=== PATIENT | female | born 1990 | race Caucasian/White ===

== ENCOUNTER 2022-12-30 06:24 | Day surgery (SDC) | payer BC ==
[~2022-12-30] VITALS: Ht 162.6 cm; Wt 83.9 kg
[~2022-12-30 06:24] MED LIST: ACET-907 PO; ALEV220T22 PO; ALTA1TAB3 PO; GABA-282 PO; GABA-283 PO; MONT-5 PO; SERT50TA29 PO; ZYRTTAB8 PO
[2022-12-30] MEDS ORDERED: CLINDAMYCIN 900 MG in IV 1 EA IV ONE (07:00)
[2022-12-30] MEDS ORDERED: LR 1,000 ML IV SCH (07:05)
[2022-12-30] MEDS ORDERED: LIDOCAINE 2% 100MG/5ML SDV (FOR ANES.) As Ordered ONE (07:05)
[2022-12-30] MEDS ORDERED: ACETAMINOPHEN 1000MG 100ML IV BAG As Ordered ONE (07:05)
[2022-12-30] MEDS ORDERED: propofoL 200 MG/20 ML VIAL As Ordered ONE (07:05)
[2022-12-30] MEDS ORDERED: MIDAZOLAM INJ 2MG/2ML VIAL As Ordered ONE (07:06)
[2022-12-30] MEDS ORDERED: fentaNYL 100 MCG/2 ML INJECTION As Ordered ONE (07:06)
[2022-12-30] MEDS ORDERED: BUPIVACAINE HCL 0.5% 30ML VIAL As Ordered ONE (07:11)
[2022-12-30] MEDS ORDERED: LIDOCAINE 1% SDV 30ML VIAL As Ordered ONE (07:11)
[2022-12-30] MEDS ORDERED: ONDANSETRON 4MG 2ML VIAL As Ordered ONE (07:48)
[2022-12-30 08:25] VITALS: BP 110/65; TEMP 98.7; O2SAT 100
== END 2022-12-30 08:51 | disposition home or self-care (01) ==
LOC: M SDC 06:24
PROVIDERS: ATTEND Podiatrist Foot & Ankle Surgery
DX: G57.61 Lesion of plantar nerve, right lower limb (principal); J45.909 Unspecified asthma, uncomplicated; Z88.0 Allergy status to penicillin; Z88.5 Allergy status to narcotic agent; Z91.010 Allergy to peanuts; Z79.899 Other long term (current) drug therapy
CPT/HCPCS: 28080; 81025; 88304; J0131; J1100; J2250; J2405; J3010; S0020; S0077